=== PATIENT | female | born 1990 | race Two or more races ===

== ENCOUNTER → 2021-08-06 | Outpatient (CLI) | payer BC ==
--- NOTE | 2021-08-06 08:05 | US ---
EXAMINATION TYPE: US abdomen complete DATE OF EXAM: 08/06/2021 COMPARISON: NONE CLINICAL HISTORY: 30-year-old female R10.814 LLQ TENDERNESS. LLQ pain x 1 month. TECHNIQUE: Multiple sonographic images of the abdomen are obtained. FINDINGS: EXAM MEASUREMENTS: Liver Length: 13.3 cm Gallbladder Wall: 0.2 cm CBD: 0.4 cm Spleen: 8.9 x 3.7 cm Right Kidney: 9.5 x 5.3 x 4.5 cm Left Kidney: 11.2 x 6.0 x 6.1 cm Pancreas: Most of the pancreas is visualized and shows no gross abnormality. Tail is shadowed by bow el gas. 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 IMPRESSION: 1. Unremarkable sonographic examination of the abdomen. 2. Additional targeted scanning of the left lower quadrant area of pain shows no specific sonographic abnormality. If symptoms persist, consider CT evaluation.
== END | disposition home or self-care (01) ==
LOC: RADUSWWP 07:01
PROVIDERS: ATTEND Family Medicine
DX: R10.814 Left lower quadrant abdominal tenderness (principal)
CPT/HCPCS: 76700

== ENCOUNTER 2022-10-15 11:18 | Inpatient (IN) | payer BC ==
[2022-10-24] MEDS ORDERED: CARBOPROST TROMETHAMINE 250 MCG/ML 1 ML AMP IM PRN ×2 (06:49→18:21)
[2022-10-24] MEDS ORDERED: miSOPROStoL 200 MCG TAB PO PRN ×2 (06:49→18:21)
[2022-10-24] MEDS ORDERED: OXYTOCIN 10 UNIT/ML 1 ML VIAL IM PRN ×2 (06:49→18:21)
[2022-10-24] MEDS ORDERED: METHYLERGONOVINE 0.2 MG/ML 1 ML AMP IM PRN ×2 (06:49→18:21)
[2022-10-24] MEDS ORDERED: TERBUTALINE 1 MG/ML VIAL SQ PRN (06:49)
[2022-10-24] MEDS ORDERED: TRANEXAMIC 1,000 MG/100ML-NACL 1,000 MG in EMPTY BAG 1 BAG IV PRN ×2 (06:49→18:21)
[2022-10-24] MEDS ORDERED: LIDOCAINE 0.5% (PF) 5 MG/ML (50 ML SDV) SQ PRN (06:49)
[2022-10-24] MEDS ORDERED: OXYTOCIN 30 UNITS/500 ML NS 30 UNIT in SALINE 1 500ML.BAG IV SCH (07:00)
[2022-10-24] MEDS: LACTATED RINGERS 1,000 ML IV SCH ×3 (07:04→22:40)
[2022-10-24 07:05] LABS: Anisocytosis Slight; Basophils % (A) 0 %; Eosinophils # (A) 0.2 k/uL (0-0.7); Eosinophils % (A) 1 %; HCT 37.2 % (34.0-46.0); HGB 12.5 gm/dL (11.4-16.0); Lymphocytes # (A) 2.5 k/uL (1.0-4.8); Lymphocytes % (A) 21 %; MCH 28.9 pg (25.0-35.0); MCHC 33.7 g/dL (31.0-37.0); Mean Platelet Volume 9.2; Monocytes # (A) 0.8 k/uL (0-1.0); Monocytes % (A) 7 %; Neutrophils # (A) 8.4 k/uL (1.3-7.7); Neutrophils % (A) 70 %; Platelet Count 208 k/uL (150-450); RBC 4.32 m/uL (3.80-5.40); RDW 16.5 % (11.5-15.5); WBC 12.1 k/uL (3.8-10.6)
--- NOTE | 2022-10-24 07:58 | P.HPOB ---
History of Present Illness H&P Date: 10/24/22 Chief Complaint: 41-2/7 weeks intrauterine , here for induction of labor This is a 31-year-old female 1 para 0 EDC 10/15/2022 at 41-2/7 weeks' gestation who presents for induction of labor. She denies fluid leakage or vaginal bleeding. She is having mild irregular uterine contractions. Fetus is been active throughout the . Past medical history is essentially negative. Past surgical history is negative. Current medications vitamins. ALLERGIES none known. Family history significant for diabetes. Social history patient is , she has never been a smoker, she denies alcohol or drug use. history is significant for blood type O+, rubella status immune. VDRL testing, hepatitis B surface antigen, HIV testing, gonorrhea and chlamydia cultures, urine culture, all negative. One-hour Glucola elevated, 3 hour GTT co nsistent with gestational diabetes, diet controlled. On exam patient is 5 foot 3 inches, 208 pounds, blood pressure 121/73. General physical exam is within limits. Cervix is posterior, soft, -2, vertex, 2-3 cm, 60% effaced. Artificial amniorrhexis reveals clear fluid. heart rate is consistent with reactive NST. Irregular mild uterine contractions are noted. Impression: 41-2/7 weeks intrauterine , here for induction of labor, all signs reassuring. Plan: Oxytocin per hospital protocol. Analgesic options reviewed. Close maternal and surveillance. Anticipate normal spontaneous vaginal delivery. Review of Systems Constitutional: Reports as per HPI Past Medical History History of Any Multi-Drug Resistant Organisms: None Reported Smoking Status: Never smoker Medications and Allergies Home Medications Medication Instructions Recorded Confirmed Type Folic Acid 1 mg PO DAILY 10/24/22 10/24/22 History Allergies Allergy/AdvReac Type Severity Reaction Status Date / Time No Known Allergies Allergy Verified 10/24/22 06:49 Exam Vital Signs Temp Pulse Resp BP Pulse Ox 10/24/22 06:35 97.0 F L 91 16 121/73 98 Intake and Output 10/23/22 10/24/22 10/24/22 22:59 06:59 14:59 Other: Weight 94.347 kg See dictation under HPI please Results Result Diagrams: 10/24/22 06:45 Abnormal Lab Results - Last 24 Hours (Table) 06/15/23 Range/Units 06:45 WBC 12.1 H (3.8-10.6) k/uL RDW 16.5 H (11.5-15.5) % Neutrophils # 8.4 H (1.3-7.7) k/uL Assessment and Plan Assessment: 41-2/7 weeks intrauterine , here for induction of labor, all signs reassuring. Group B strep cultures negative. Plan: Oxytocin per hospital protocol. Continue close maternal and surveillance. Analgesic options reviewed. Anticipate normal spontaneous vaginal delivery. Time with Patient: Less than 30
[2022-10-24 08:08] LABS: Glucose,Whole Blood 95 mg/dL (70-110)
[2022-10-24 18:14] LABS: Glucose,Whole Blood 79 mg/dL (70-110)
[2022-10-24] MEDS ORDERED: CITRIC ACID-SODIUM CITRATE 15 ML CUP PO ONE (18:21)
[2022-10-24] MEDS ORDERED: MORPHINE SULFATE (PF) 0.3 MG/0.3 ML SYR ONE (18:38)
[2022-10-24] MEDS ORDERED: KETOROLAC 15 MG/ML 1 ML VIAL ONE (18:38)
[2022-10-24] MEDS ORDERED: OXYTOCIN 30 UNITS/500 ML NS BAG IV ONE (18:38)
[2022-10-24] MEDS ORDERED: ONDANSETRON 4 MG/2 ML VIAL ONE (18:38)
[2022-10-24] MEDS ORDERED: ePHEDrine 50 MG/ML 1 ML VIAL ONE (18:38)
[2022-10-24] MEDS ORDERED: METHYLERGONOVINE 0.2 MG/ML 1 ML AMP ONE (18:38)
[2022-10-24] MEDS ORDERED: NALOXONE 0.4 MG/ML 1 ML VIAL IV PRN (19:35)
[2022-10-24] MEDS ORDERED: SIMETHICONE 80 MG CHEWABLE PO PRN (19:35)
[2022-10-24] MEDS ORDERED: diphenhydrAMINE 50 MG/ML 1 ML VIAL IVP PRN ×2 (19:35)
[2022-10-24] MEDS ORDERED: METOCLOPRAMIDE 5 MG/ML 2 ML VIAL IVP PRN (19:35)
[2022-10-24] MEDS ORDERED: ZOLPIDEM 5 MG TAB PO PRN (19:35)
[2022-10-24] MEDS ORDERED: ONDANSETRON 4 MG/2 ML VIAL IVP PRN (19:35)
[2022-10-24] MEDS ORDERED: diphenhydrAMINE 50 MG CAP PO PRN (19:35)
[2022-10-24] MEDS ORDERED: diphenhydrAMINE 25 MG CAP PO PRN (19:35)
[2022-10-24] MEDS ORDERED: traMADol 50 MG TAB PO PRN (19:35)
--- NOTE | 2022-10-24 19:35 | P.OP ---
Date of Procedure: 10/24/22 Preoperative Diagnosis: 41-2/7 weeks intrauterine , meconium-stained fluid, arrest of dilatation and descent, gestational diabetes. Postoperative Diagnosis: Same, liveborn male infant, right occiput transverse position. Procedure(s) Performed: Primary low transverse section. Anesthesia: spinal Surgeon: Kalli López Brush Clearing Laborer #1: Della Rodriguez Estimated Blood Loss (ml): 473 IV fluids (ml): 1,000 Urine output (ml): 150 Pathology: none sent Condition: stable Disposition: PACU Operative Findings: Liveborn male in the right occiput transverse position, 8 lbs. 2 oz. Description of Procedure: Patient was induced this morning for postdates . Artificial amniorrhexis revealed clear fluid. Oxytocin was started and titrated per hospital protocol, at one point was up to 40 mU/m. Despite aggressive management, there was arrest of dilatation and descent at 4 cm, 60%, -2. The decision was made to proceed with primary low transverse section. Antibiotics were given. Bicitra given. Abdomen wiped and patient brought to the operative suite where a spinal anesthesia with Duramorph was given without difficulty. She's placed in the dorsal supine position with left lateral uterine displacement. The abdomen is prepped and draped in usual sterile fashion. Please note that vaginal prep and Castillo catheter were done in the operating room after spinal prior to abdominal prep. The appropriate timeout is performed to assure proper patient and procedural identification. The analgesic is checked and noted to be adequate. A low transverse skin incision is made in this is carried down through the subcutaneous tissue to the fascia. Fascia is isolated, scored, extended bilaterally with curved Landeros scissors. Peritoneum is next identified and incised, there is no bowel or bladder involvement. Bladder blade is placed over the dome of the bladder. At all times the bladder is Well from the operative field to avoid bladder and/or ureteral injury. A low transverse uterine incision is made carried down through the myometrium and upon entering the uterine cavity meconium-stained fluid is noted. Infant's head delivered in the right occiput transverse position. The oropharynx, nasopharynx, and external nares are all bulb suctioned. Patient is officially delivered of a liveborn male at 1856 hours. Umbilical cord is doubly clamped and ligated, he is handed to waiting nurses for evaluation where scores of 8 and 9 at one and 5 minutes respectively were given. The placenta is delivered manually, it is inspected and noted to be intact with trivascular cord at 1857 hours. The uterus is then externalized and massaged. Methergine is given to aid in hemostasis. The uterus is swept clean with a sterile sponge to avoid any retained products of conception. Uterus is closed in a two-step fashion, first layer running locking with 0 Vicryl, second layer imbricated with same. Hemostasis is excellent. Abdomen is suctioned with suction on guard posterior to the uterus. Uterus is then gently placed back into the abdominal cavity. Bilateral gutters are inspected and cleaned. Peritoneum is allowed to close by secondary intention. Fascia is closed in a running stitch of 0 Vicryl with over ligation in the midline. Subcutaneous tissue is clean and dry, reapproximated with 2-0 Vicryl in a running fashion. 4-0 undyed Monocryl is used for final skin closure. Steri-Strips and Mastisol are applied to the wound. Castillo is noted to be draining clear urine. Uterus is expressed for a small amount of lochia. Total estimated blood loss 473 mL, fluid replacement 1000 mL, urine 1 50 mL's. Infant weighs 8 lbs. 2 oz. or 3690 g. They are declining circumcision further son.
[2022-10-24] MEDS ORDERED: ACETAMINOPHEN IV (For NPO) 1,000 MG in EMPTY BAG 1 BAG IVPB ONE (19:59)
[2022-10-24] MEDS: ACETAMINOPHEN TAB 500 MG TAB PO SCH (22:25)
[2022-10-24] MEDS: SENNOSIDES-DOCUSATE SODIUM 1 EACH TAB PO SCH (22:25)
[2022-10-25] MEDS: IBUPROFEN 600 MG TAB PO SCH ×4 (05:05→20:08)
[2022-10-25] MEDS: LACTATED RINGERS 1,000 ML IV SCH ×3 (05:51→21:38)
[2022-10-25 07:04] LABS: Anisocytosis Slight; Basophils % (A) 0 %; Eosinophils # (A) 0.1 k/uL (0-0.7); Eosinophils % (A) 1 %; HCT 29.1 % (34.0-46.0); Lymphocytes # (A) 1.1 k/uL (1.0-4.8); Lymphocytes % (A) 9 %; MCH 29.6 pg (25.0-35.0); MCHC 33.9 g/dL (31.0-37.0); MCV 87.5 fL (80.0-100.0); Mean Platelet Volume 9.7; Monocytes # (A) 0.6 k/uL (0-1.0); Monocytes % (A) 5 %; Neutrophils # (A) 10.8 k/uL (1.3-7.7); Neutrophils % (A) 85 %; Platelet Count 166 k/uL (150-450); RBC 3.33 m/uL (3.80-5.40); RDW 16.8 % (11.5-15.5); WBC 12.8 k/uL (3.8-10.6)
[2022-10-25 07:06] LABS: HGB 9.9 gm/dL (11.4-16.0)
[2022-10-25] MEDS: ACETAMINOPHEN TAB 500 MG TAB PO SCH ×4 (08:08→23:22)
[2022-10-25] MEDS: SENNOSIDES-DOCUSATE SODIUM 1 EACH TAB PO SCH ×2 (08:09→20:08)
--- NOTE | 2022-10-25 08:56 | P.PN ---
Subjective Progress Note Date: 10/25/22 Principal diagnosis: Doing well first postoperative day Positive flatus. Minimal pain. Minimal lochia rubra. Breast-feeding going well. No complaints Objective - Vital Signs Vital signs: Vital Signs Temp 98.5 F 10/25/22 07:57 Pulse 95 10/25/22 07:58 Resp 16 10/25/22 07:58 BP 99/59 10/25/22 07:57 Pulse Ox 97 10/25/22 04:00 FiO2 Intake & Output 10/24/22 10/25/22 10/25/22 18:59 06:59 18:59 Intake Total 1000 1024.9 Output Total 1255 Balance 1000 -230.1 Intake: IV 1000 1000 Intake, IV Titration 24.9 Amount Oxytocin 30 Units/500 ml 24.9 Ns 30 unit In Saline 1 500ml.bag @ Per Protocol IV .Q0M REPLACED BY [facility] Rx#:[id number] Output: Urine 550 Uretheral (Castillo) 400 Estimated Blood Loss 473 Output, Quantitative 232 Blood Loss Other: Voiding Method Indwelling Catheter # Voids 4 - Constitutional General appearance: Present: average body habitus, cooperative - EENT Eyes: Present: PERRLA ENT: Present: hearing grossly normal - Neck Carotids: bilateral: upstroke normal Thyroid: bilateral: normal size - Respiratory Respiratory: bilateral: CTA - Cardiovascular Rhythm: regular - Gastrointestinal Gastrointestinal Comment(s): Incision clean and dry, intact, Steri-Strips applied. Fundus firm, midline, symmetric, 18 week size. General gastrointestinal: Present: normal bowel sounds - Integumentary Integumentary: Present: normal - Neurologic Neurologic: Present: CNII-XII intact - Musculoskeletal Musculoskeletal: Present: gait normal, strength equal bilaterally - Psychiatric Psychiatric: Present: A&O x's 3, appropriate affect, intact judgment & insight - Labs CBC & Chem 7: 10/25/22 06:25 Labs: Abnormal Lab Results - Last 24 Hours (Table) 10/25/22 Range/Units 06:25 WBC 12.8 H (3.8-10.6) k/uL RBC 3.33 L (3.80-5.40) m/uL Hgb 9.9 L D (11.4-16.0) gm/dL Hct 29.1 L (34.0-46.0) % RDW 16.8 H (11.5-15.5) % Neutrophils # 10.8 H (1.3-7.7) k/uL Assessment and Plan Assessment: Doing well first postoperative day Plan: Continue postoperative care. Circumcision declined. Breast pump prescription written. Likely discharge home tomorrow. Time with Patient: Less than 30
--- NOTE | 2022-10-25 12:02 | P.PN ---
Progress Note - Text 10/25/22 612am 31-year-old female status post with spinal Duramorph. Patient seen and evaluated for postop pain control, patient has a VAS of 1 at rest no complains of nausea vomiting. Patient does have pruritus which should subside by the end of the day
[2022-10-26] MEDS: IBUPROFEN 600 MG TAB PO SCH ×4 (02:15→21:33)
[2022-10-26] MEDS: ACETAMINOPHEN TAB 500 MG TAB PO SCH ×4 (06:09→23:49)
--- NOTE | 2022-10-26 08:43 | P.DS ---
Providers Date of admission: 10/24/22 06:15 Expected date of discharge: 10/26/22 Attending physician: Kalli López Primary care physician: Stated None Hospital Course: This is a 31-year-old female 1 para 0 EDC 10/15/2022 who presented at 41-2/7 weeks' gestation for induction with reasonably favorable cervix. Blood type O positive, group B strep cultures negative, rubella status immune. was Located by gestational diabetes, diet controlled. Please see my dictated history and physical for details. Patient labored successfully throughout the day, but experienced arrest of dilatation and descent. For this reason a primary low transverse section was performed, she gave to a liveborn female with scores of 8 and 9 at one and 5 minutes respectively, he was in the right occiput transverse position. Estimated blood loss at surgery 473 mL's. weight 8 lbs. 2 oz. or 3690 g. Surgery was otherwise unremarkable, please see dictated note for details. This morning the patient and her are both doing well. The patient is voiding, ambulating, passing flatus without difficulty. Vital signs are stable and she is afebrile. Incision is clean and dry, intact, Steri-Strips applied. Fundus is firm, midline, symmetric, 18 week size. Extremities are negative for edema. Chest is clear. Patient is judged to be in very good condition for discharge home. She will follow-up in the office with me in 2 weeks. I have reminded her no intercourse, tampons or douching. She will use [id number] Advil or Aleve, or Motrin as needed for pain. She will call with any fevers s hakes or chills, foul smelling or copious lochia, with the passage of large blood clots, with any pain not alleviated by [id number] products, or indeed with any concerns. Assessment: Well second postoperative day Patient Condition at Discharge: Good Plan - Discharge Summary Discharge Rx Participant: No New Discharge Prescriptions: No Action Folic Acid 1 mg PO DAILY Discharge Medication List Folic Acid 1 mg PO DAILY 10/24/22 [History] Follow up Appointment(s)/Referral(s): Kalli López MD [STAFF PHYSICIAN] - 2 Weeks Discharge Disposition: HOME SELF-CARE
[2022-10-26] MEDS: SENNOSIDES-DOCUSATE SODIUM 1 EACH TAB PO SCH ×2 (08:51→21:33)
[2022-10-27] MEDS: IBUPROFEN 600 MG TAB PO SCH ×3 (03:12→15:13)
[2022-10-27] MEDS: ACETAMINOPHEN TAB 500 MG TAB PO SCH ×2 (06:08→12:47)
[2022-10-27 08:52] VITALS: BP 110/72; PULSE 69; RESP 16; TEMP 98.2
[2022-10-27] MEDS: SENNOSIDES-DOCUSATE SODIUM 1 EACH TAB PO SCH (10:54)
== END 2022-10-27 15:30 | disposition home or self-care (01) | DRG 788 ==
LOC: 4FBP 10-24 06:15
PROVIDERS: ADMIT Obstetrics & Gynecology; ATTEND Obstetrics & Gynecology
PROC: 3E033VJ Introduction of Other Hormone into Peripheral Vein, Percutaneous Approach (ICD-10-PCS; 2022-10-24)
PROC: 3E0DXGC Introduction of Other Therapeutic Substance into Mouth and Pharynx, External Approach (ICD-10-PCS; 2022-10-24)
PROC: 10907ZC Drainage of Amniotic Fluid, Therapeutic from Products of Conception, Via Natural or Artificial Opening (ICD-10-PCS; 2022-10-24)
PROC: 10D00Z1 Extraction of Products of Conception, Low, Open Approach (ICD-10-PCS; principal; 2022-10-24 18:30)
DX: O48.0 Post-term pregnancy (principal); O24.420 Gestational diabetes mellitus in childbirth, diet controlled; O32.2XX0 Maternal care for transverse and oblique lie, not applicable or unspecified; O77.0 Labor and delivery complicated by meconium in amniotic fluid; O62.0 Primary inadequate contractions; O99.73 Diseases of the skin and subcutaneous tissue complicating the puerperium; L29.9 Pruritus, unspecified; Z37.0 Single live birth; Z28.310 Unvaccinated for COVID-19; Z3A.41 41 weeks gestation of pregnancy; Z79.899 Other long term (current) drug therapy
CPT/HCPCS: 85025; 86850; 86900; 86901